=== PATIENT | female | born 1960 | race African-American/Black ===

== ENCOUNTER 2018-08-14 01:20 | Emergency (ER) | payer OTHER ==
--- NOTE | 2018-08-14 03:36 | Emergency Department Report ---
HPI - General Chief Complaint: Adult Asthma Time Seen by Provider: 08/14/18 03:29 - HPI HPI: Room 9 The patient is a 58-year-old female presenting with a chief complaint of shortness of breath. She states this evening she developed shortness of breath and wheezing but her nebulizers and inhaler did not help. Patient was administered Solu-Medrol magnesium and albuterol by EMS prior to arrival and now she states she feels better. EMS had noted the patient was satting at 80% on room air Location: Lungs Duration: [See above] Quality: Shortness of breath Severity: Moderate Modifying factors: [see above] Context: [see above] Mode of transportation: [not driving] ED Past Medical Hx - Past Medical History Previous Medical History?: Yes Hx Asthma: Yes - Surgical History Past Surgical History?: No - Family History Family history: no significant - Social History Smoking Status: Never Smoker Substance Use Type: None - Medications Home Medications: Home Medications Medication Instructions Recorded Confirmed Last Taken Type Montelukast [Singulair] 10 mg PO QPM 06/24/15 11/23/15 11/23/15 History Brovana Nebu 15 mcg INHALATION TID 11/23/15 11/23/15 11/22/15 10:00 History Perforomist 20 mcg INHALATION TID 11/23/15 11/23/15 11/22/15 10:00 History Benzonatate [Tessalon Perles] 100 mg PO Q8HR PRN #20 capsule 11/25/15 Unknown Rx Prednisone [predniSONE 5 mg (6-Day 5 mg PO .TAPER #1 tab.ds.pk 11/25/15 Unknown Rx Pack, 21 Tabs)] levoFLOXacin [Levaquin TAB] 500 mg PO Q24HR #5 tablet 11/25/15 Unknown Rx ALBUTEROL Inhaler (OR & NICU) 2 puff IH Q4HR PRN #1 inhalation 06/30/18 Unknown Rx [ProAir HFA Inhaler] predniSONE [Deltasone] 20 mg PO QDAY #15 tab 06/30/18 Unknown Rx ALBUTEROL Inhaler (OR & NICU) 2 puff IH QID PRN #1 inhalation 08/14/18 Unknown Rx [Proair] Prednisone [predniSONE 10 mg 10 mg PO .TAPER #1 tab.ds.pk 08/14/18 Unknown Rx (6-Day Pack, 21 Tabs)] ED Review of Systems ROS: Stated complaint: SILVIANO Other details as noted in HPI Comment: All other systems reviewed and negative Constitutional: denies: fever Eyes: denies: eye pain ENT: denies: throat pain Respiratory: shortness of breath, wheezing. denies: cough Cardiovascular: denies: chest pain Endocrine: no symptoms reported Musculoskeletal: myalgia Physical Exam - Physical Exam Vital Signs: Vital Signs 08/14/18 08/14/18 01:30 01:35 Temperature 97.7 F 97.7 F Pulse Rate 100 H 20 L Respiratory 20 20 Rate Blood Pressure 153/83 [Right] O2 Sat by Pulse 96 94 Oximetry Vital Signs 08/14/18 08/14/18 08/14/18 01:30 01:35 03:35 Temperature 97.7 F 97.7 F Pulse Rate 100 H 102 H Pulse Rate [ Right Lower Lobe] Respiratory 20 20 Rate Respiratory Rate [Right Lower Lobe] Blood Pressure 153/83 [Right] O2 Sat by Pulse 96 94 99 Oximetry 08/14/18 08/14/18 08/14/18 04:01 04:22 05:10 Temperature Pulse Rate 98 H Pulse Rate [ 80 Right Lower Lobe] Respiratory 16 Rate Respiratory 18 Rate [Right Lower Lobe] Blood Pressure 128/54 [Right] O2 Sat by Pulse 94 96 Oximetry Physical Exam: GENERAL: The patient is well-developed well-nourished female lying on stretcher not appearing to be in acute distress. [] HEENT: Normocephalic. Atraumatic. Extraocular motions are intact. Patient has moist mucous membranes. NECK: Supple. Trachea midline CHEST/LUNGS: Clear to auscultation. There is no respiratory distress noted. HEART/CARDIOVASCULAR: Regular. There is no tachycardia. There is no gallop rub or murmur. ABDOMEN: Abdomen is soft, nontender. Patient has normal bowel sounds. There is no abdominal distention. SKIN: There is no rash. There is no edema. There is no diaphoresis. NEURO: The patient is awake, alert, and oriented. The patient is cooperative. The patient has normal speech MUSCULOSKELETAL: There is no evidence of acute injury. ED Course Vital Signs 08/14/18 08/14/18 01:30 01:35 Temperature 97.7 F 97.7 F Pulse Rate 100 H 20 L Respiratory 20 20 Rate Blood Pressure 153/83 [Right] O2 Sat by Pulse 96 94 Oximetry ED Medical Decision Making - Radiology Data Radiology results: report reviewed (chest x-ray), image reviewed (chest x-ray) interpreted by me: Chest x-ray-no focal infiltrates, no pneumothorax [facility] [address] [place] [address] XRay Report Signed Patient: MEAGHAN OSCAR MR#: [id number] : 1960 Acct:[id number] Age/Sex: 58 / F ADM Date: 08/14/18 Loc: ED Attending Dr: Ordering Physician: EVELYN PARKS MD Date of Service: 08/14/18 Procedure(s): XR chest 1V ap Accession Number(s): [id number] cc: EVELYN PARKS MD Fluoro Time In Minutes: FINAL REPORT PROCEDURE: XR CHEST 1V AP TECHNIQUE: Chest radiograph anteroposterior view. CPT 91813 HISTORY: shortness of breath COMPARISON: 11/22/2015 FINDINGS: Heart: Normal. Mediastinum/Vessels: Normal. Lungs/Pleural space: Normal. Bony thorax: No acute osseous abnormality. Life support devices: None. IMPRESSION: No acute cardiopulmonary abnormality. Transcribed By: [facility] Dictated By: ABEL WHITE MD Electronically Authenticated By: ABEL WHITE MD Signed Date/Time: 08/14/18408 DD/ 0 TD/TT: 08/14/18410 - Differential Diagnosis acute asthma exacerbation Critical care attestation.: If time is entered above; I have spent that time in minutes in the direct care of this critically ill patient, excluding procedure time. ED Disposition Clinical Impression: Acute asthma exacerbation Disposition: DC-01 TO HOME OR SELFCARE Is pt being admited?: No Does the pt Need Aspirin: No Condition: Stable Instructions: Asthma (ED) Additional Instructions: Return to the emergency department immediately should you develop worsening symptoms, fever, inability to tolerate food or liquid or any other concerns. Prescriptions: ALBUTEROL Inhaler (OR & NICU) [Proair] 2 puff IH QID PRN #1 inhalation PRN Reason: Shortness Of Breath Prednisone [predniSONE 10 mg (6-Day Pack, 21 Tabs)] 10 mg PO .TAPER #1 tab.ds.pk Time of Disposition: 05:20
[2018-08-14] MEDS ORDERED: PROVENTIL IH ONE (04:02)
[2018-08-14] MEDS ORDERED: ATROVENT IH ONE (04:02)
--- NOTE | 2018-08-14 04:09 | XRay Report ---
FINAL REPORT PROCEDURE: XR CHEST 1V AP TECHNIQUE: Chest radiograph anteroposterior view. CPT 22034 HISTORY: shortness of breath COMPARISON: 11/22/2015 FINDINGS: Heart: Normal. Mediastinum/Vessels: Normal. Lungs/Pleural space: Normal. Bony thorax: No acute osseous abnormality. Life support devices: None. IMPRESSION: No acute cardiopulmonary abnormality.
[2018-08-14 05:13] VITALS: BP 128/54
== END 2018-08-14 05:29 | disposition home or self-care (01) ==
LOC: ED 01:20
DX: J45.901 Unspecified asthma with (acute) exacerbation (principal); Z88.1 Allergy status to other antibiotic agents; Z88.6 Allergy status to analgesic agent; Z88.8 Allergy status to other drugs, medicaments and biological substances; Z79.899 Other long term (current) drug therapy
CPT/HCPCS: 71045; 94640